=== PATIENT | female | born 1985 | race Caucasian/White ===

== ENCOUNTER 2017-06-30 17:17 | Emergency (ER) | payer OTHER, SELFPAY ==
[2017-06-30 18:12] LABS: Bilirubin Small (Negative); Blood, Urine Negative (Negative); Clarity CLEAR (Clear); Glucose, Urine (Dipstick) Negative (Negative); Leukocyte Small (Negative); Nitrite Negative (Negative); Protein, Urine (Dipstick) 30 mg/dL (Neg-Trace); Specific Gravity, Urine 1.034 (1.002-1.036)
[2017-06-30 18:13] LABS: Pregnancy Test - Urine (BHCG) POSITIVE (Negative); Pregu Control Background? CLEAR/WHITE (CLR/WHITE); Pregu Control Bar Appear? YES (CONTROL BAR); Specific Gravity 1.034 (1.002-1.036)
[2017-06-30 18:16] LABS: Bacteria/HPF None Seen HPF (None Seen)
[2017-06-30 18:17] LABS: Pathc Cast-AUWi Flag 3.05 (0-2.49)
[2017-06-30 18:28] LABS: RBC/HPF None Seen HPF (0-3)
== END 2017-06-30 18:23 ==
LOC: ERS 17:17
DX: Z53.21 Procedure and treatment not carried out due to patient leaving prior to being seen by health care provider (principal)
CPT/HCPCS: 81003; 81015; 81025

== ENCOUNTER 2017-10-04 22:36 | Observation (INO) | payer OTHER, SELFPAY ==
[2017-10-04 23:05] LABS: #Eosinphils 0.2 thou/uL (0.0-0.7); #Lymphocytes 2.5 thou/uL (1.20-3.40); #Monocytes 0.7 thou/uL (0.11-0.59); #Neutrophils 6.6 thou/uL (1.40-6.50); %Basophils 0.3 % (0.0-1.0); %Eosinophils 2.1 % (0.0-10.0); %Lymphocytes 25.2 % (21.0-51.0); %Monocytes 6.5 % (0.0-10.0); Mean Corpuscular HGB CONC 34.5 g/dL (32.0-36.0); Mean Corpuscular Hemoglobin 30.1 pg (27.0-31.0); Mean Corpuscular Volume 87.2 fL (78.0-98.0); Mean Platelet Volume 6.3 fL (7.4-10.4); Platelet Count 360 thou/uL (130-400); RBC Distribution Width 13.1 % (11.5-14.5); Red Blood Cell (RBC) Count 3.31 mill/uL (4.20-5.40)
[2017-10-04 23:14] LABS: ALT (SGPT) 9 U/L (8-55); AST (SGOT) 10 U/L (5-34); Alkaline Phosphatase 54 U/L (40-150); Anion Gap 13 mmol/L (10-20); BUN (Urea Nitrogen) 6 mg/dL (7.0-18.7); Bilirubin, Total 0.3 mg/dL (0.2-1.2); Calc. Creatinine Clearance 0 mL/min (70-130); Calcium 8.5 mg/dL (7.8-10.44); Carbon Dioxide 22 mmol/L (22-29); Chloride 104 mmol/L (98-107); Estimated GFR-MDRD Greater than 90; Globulin 2.5 g/dL (2.4-3.5); Glucose 104 mg/dL (70-105); Protein, Total 5.5 g/dL (6.0-8.3); Sodium 136 mmol/L (136-145)
[2017-10-04 23:18] LABS: Potassium 2.7 mmol/L (3.5-5.1)
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
[2017-10-05] MEDS ORDERED: Pot Chloride/Pot Bicarb/Cit Ac 25 mEq Effervescent Tablet ONE (00:06)
[2017-10-05 00:07] LABS: Bilirubin Negative (Negative); Blood, Urine Negative (Negative); Clarity CLEAR (Clear); Glucose, Urine (Dipstick) Negative (Negative); Leukocyte Trace (Negative); Nitrite Negative (Negative); Protein, Urine (Dipstick) Negative (Neg-Trace); Specific Gravity, Urine 1.011 (1.002-1.036); pH, Urine 6.5 (5.0-9.0)
[2017-10-05 00:10] LABS: Bacteria/HPF None Seen HPF (None Seen); Hyaline Casts/LPF 7-10 HYALINE CAST LPF (0-3 Hyaline); Pathc Cast-AUWi Flag 2.03 (0-2.49); RBC/HPF 0-3 HPF (0-3); Squamous Epithelial 0-3 HPF (0-3); WBC/HPF 0-3 HPF (0-3)
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
[2017-10-05] MEDS ORDERED: Lactated Ringer's 1,000 ML IV SCH (01:15)
[2017-10-05] MEDS ORDERED: Potassium Chloride 20 MEQ TAB PO SCH ×3 (01:15→09:45)
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
[2017-10-05] MEDS ORDERED: Potassium Chloride 10 MEQ in Premix Bag 1 BAG IVPB SCH (01:30)
[2017-10-05 01:46] VITALS: BMI 27.4
--- NOTE | 2017-10-05 02:30 | PDOC.EVN ---
Event Note - Event Note Event Note: Follow UP; Verbal sono report 23 weeks, no gross abnormalities. We will get a strip if possible due to EGA. no need for complete monitoring at this time No evidence abruption or labor. We will obs until about 0700 and then anticipate dc home Patient needs to void for uds but states doesnt need to go yet. IVFs in use.
[2017-10-05] MEDS ORDERED: Acetaminophen 500 MG TAB PO PRN (03:11)
[2017-10-05] MEDS ORDERED: Acetaminophen 500 MG TAB PO SCH (03:30)
--- NOTE | 2017-10-05 07:14 | PDOC.EVN ---
Event Note - Event Note Event Note: @0710: Still awaiting UDS collection. Patient states "does not have to pee". I suspect she may be attempting to prevent urine for drug testing. There is no evidence of Vag Bleed or LOF or PTL. UDS must be voided sample, not cath, per lab.
--- NOTE | 2017-10-05 08:11 | PDOC.EVN ---
Event Note - Event Note Event Note: @5700 Case discussed with oncoming OBGYN. We will attempt urine collection. No evidence obstetrical issue at this time.
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
[2017-10-05 09:31] LABS: Amphetamine Detected (NotDetected); Barbiturates Screen Not Detected (NotDetected); Benzodiazepine Screen Not Detected (NotDetected); Cocaine Metabolite Screen Not Detected (NotDetected); Medtox Control Line Valid? VALID (VALID); Medtox Reader # READER 4; Methadone Not Detected (NotDetected); Methamphetamine Detected (NotDetected); Opiate Screen Not Detected (NotDetected); Oxycodone Screen Not Detected (NotDetected); Phencyclidine (PCP) Not Detected (NotDetected); THC/Cannabinoid Screen Not Detected (NotDetected); Tricyclic Screen Not Detected (NotDetected)
--- NOTE | 2017-10-05 09:43 | PDOC.EVN ---
Event Note - Event Note Event Note: UDS returned + for amphetamine and methamphetamine. This can explain her hypokalemia, which has now been adequately replaced. Will get case management prior to d/c.
--- NOTE | 2017-10-05 09:49 | PDOC.EVN ---
Event Note - Event Note Event Note: post shift note: post shift note: Although Dr. Shell MD is now on, this note is post shift. Patient was noted to have hypokalemia in ED. she received oral KCL in ED and we have replaced K IV. UDS with ampetamines which can cause low K.
--- NOTE | 2017-10-05 10:04 | PDOC.EVN ---
Event Note - Event Note Event Note: After discussion with pharmacy and review of MAR, patient has received 100 meq total of potassium replacement. Patient asymptomatic. Will recheck K level.
[2017-10-05 10:48] LABS: Anion Gap 10 mmol/L (10-20); BUN (Urea Nitrogen) 5 mg/dL (7.0-18.7); Calc. Creatinine Clearance 189 mL/min (70-130); Calcium 8.3 mg/dL (7.8-10.44); Carbon Dioxide 21 mmol/L (22-29); Chloride 109 mmol/L (98-107); Estimated GFR-MDRD Greater than 90; Glucose 84 mg/dL (70-105); Potassium 3.7 mmol/L (3.5-5.1); Sodium 136 mmol/L (136-145)
[2017-10-05 10:56] VITALS: BP 110/58; TEMP 98.7
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
--- NOTE | 2017-10-08 11:49 | EKG ---
Test Reason : Blood Pressure : / mmHG Vent. Rate : 088 BPM Atrial Rate : 088 BPM P-R Int : 144 ms QRS Dur : 102 ms QT Int : 386 ms P-R-T Axes : 037 062 059 degrees QTc Int : 467 ms Sinus rhythm with marked sinus arrhythmia Otherwise normal ECG Confirmed by BILL BARKSDALE, LEONA ([id number]), editor & co founder JOJO NG ([id number]) on 10/08/2017 11:49:14 AM Referred By: Confirmed By:LEONA KHAN MD
== END 2017-10-05 11:25 | disposition home health service (06) ==
LOC: ERS 22:36 → L&D/OP 10-05 00:41 → L&D 10-05 01:57
PROVIDERS: ADMIT Obstetrics & Gynecology; ATTEND Obstetrics & Gynecology
DX: Z04.1 Encounter for examination and observation following transport accident (principal); O99.282 Endocrine, nutritional and metabolic diseases complicating pregnancy, second trimester; E87.6 Hypokalemia; Z3A.22 22 weeks gestation of pregnancy
CPT/HCPCS: 36415; 51701; 70450; 72125; 76700; 76805; 80048; 80053; 80306; 81003; 81015; 85025; 86900; 86901; 93005; 96360; 96361; 96365; 96366; 99285; A4353; G0378; G0390; J3480

== ENCOUNTER 2017-11-19 18:35 | Inpatient (IN) | payer SELFPAY ==
[2017-11-19 19:18] VITALS: BMI 29.0
[2017-11-19] MEDS ORDERED: Lactated Ringer's 1,000 ML IV SCH (20:00)
[2017-11-19 20:36] LABS: #Basophils 0.1 thou/uL (0.0-0.2); #Eosinphils 0.2 thou/uL (0.0-0.7); #Lymphocytes 2.5 thou/uL (1.20-3.40); #Monocytes 0.6 thou/uL (0.11-0.59); #Neutrophils 8.2 thou/uL (1.40-6.50); %Basophils 0.6 % (0.0-1.0); %Eosinophils 1.6 % (0.0-10.0); %Lymphocytes 21.9 % (21.0-51.0); %Monocytes 5.5 % (0.0-10.0); %Neutrophils 70.5 % (42.0-75.0); Mean Corpuscular HGB CONC 33.6 g/dL (32.0-36.0); Mean Corpuscular Hemoglobin 28.9 pg (27.0-31.0); Mean Corpuscular Volume 86.2 fL (78.0-98.0); Mean Platelet Volume 6.5 fL (7.4-10.4); Platelet Count 410 thou/uL (130-400); RBC Distribution Width 13.2 % (11.5-14.5); Red Blood Cell (RBC) Count 3.12 mill/uL (4.20-5.40); White Blood Cell (WBC) Count 11.6 thou/uL (4.8-10.8)
--- NOTE | 2017-11-19 20:48 | HP ---
DATE OF ADMISSION: 11/19/2017 TIME OF EVALUATION: 1942 until 1999 LOCATION: Labor and Delivery. This is a patient who has not yet established care. REASON FOR EVALUATION: Abdominal pain, after the patient left against medical advice from a hospital in [place] this morning. HISTORY OF PRESENT ILLNESS: In brief, this is a 31-year-old 5, para 3 with a due date of , which puts her at 29 weeks and a few days, here for followup of abdominal pain. She states she w as in the hospital in [place] last night, but she left this morning AMA as "her ride was there." S he came here for evaluation. She was diagnosed with gallbladder stones there. It is important to no te that the patient was here at this location in October as well and had an ultrasound, which showed gal lbladder stones at that time. She also had an obstetrical ultrasound in October, which gave her her due date of 02/01. She is here for nonspecific mid sternum abdominal pain. She has no vaginal bleeding , ruptured membranes and she has good movement. 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 REVIEW OF SYSTEMS: Complete review of systems was checked and is otherwise negative unless specified in the HPI. OBSTETRIC HISTORY: Significant for 3 prior vaginal deliveries. ALLERGIES: None. PAST SURGICAL HISTORY: None. MEDICATIONS: None. SOCIAL HISTORY: Positive amphetamine and methamphetamine use in October. PHYSICAL EXAMINATION: VITAL SIGNS: Stable and within normal limits. heart tones were in the 150s, but did have mini mal variability. There was a small variable decels seen, but it is unsure at this point if this is s imply reflection of the estimated gestational age of 29 weeks. ASSESSMENT: This is a patient who is 31-year-old G5, P3 at 29 weeks and a few days with no establish ed care, known history of amphetamine and methamphetamine use, with a known diagnosis of cho lelithiasis, first diagnosed in October and confirmed by the hospital "in [place]." PLAN: 1. I have asked to request her medical records from her recent stay. 2. I have ordered an ultrasound for rate of growth as well as a biophysical profile. Her biophysica l profile may have some limited interpretations due to gestational age immaturity, but nonetheless, I will get the biophysical profile to give us more information. 3. Although the patient is not having any symptoms of true labor, I have ordered a cervical length t o rule out any abnormal shortening as she is a noncompliant care patient. 4. I have ordered a CBC, CMP and another urine drug screen for testing. 5. In addition to the OB ultrasound for growth, biophysical profile and cervical length, I have orde red a right upper quadrant ultrasound to rule out any common bile duct dilation and/or gallbladder wa ll thickening. She is currently afebrile. 6. We will do observation in Labor and Delivery until we have these tests back, which will guide fur ther therapy.
[2017-11-19] MEDS: Promethazine HCl 25 MG/ML VIAL IM/IV PRN (20:50)
--- NOTE | 2017-11-19 20:59 | PRG ---
DATE OF SERVICE: 11/19/2017 FOLLOWUP IN TRIAGE SUBJECTIVE: In brief, this is a followup dictation for Ms. Asher who is here status post evaluation at the [facility]. We have the medical records from [facility] where she was seen. There, they performed an obstetrical ultrasound, which revealed a 29-week and 5 days, which is size compatible with our estimated dated here. The estimated weight there was 1454 grams, baby was in a breech presentation. No abnormalities were seen. The LADONNA was normal at 21. At that location, she also had a white blood cell count of 12.6, but her liver function tests were normal. She had a right upper quadrant ultrasound there, which showed cholelithiasis, but no gallbladder wall thickening and no evidence of common bile duct obstruction. The patient is currently undergoing our obstetrical ultrasound for comparison and biophysical profile. As she had a right upper quadrant ultrasound done within the last 24 hours, I have decided to cancel the right upper quadrant ultrasound as we will use the one from the other institution. The patient's white blood cell count is slightly lower than what it was at the other hospital with a value here of 11.6. Hematocrit is 26.9. I am awaiting the biophysical profile result here and the remainder of her laboratory data, which is the CMP and urine toxicology evaluation. UDS negative at other hospital. TAMMYD
[2017-11-19 21:04] LABS: Amphetamine Not Detected (NotDetected); Barbiturates Screen Not Detected (NotDetected); Benzodiazepine Screen Not Detected (NotDetected); Cocaine Metabolite Screen Not Detected (NotDetected); Medtox Control Line Valid? VALID (VALID); Medtox Reader # READER 1; Methadone Not Detected (NotDetected); Methamphetamine Not Detected (NotDetected); Opiate Screen Detected (NotDetected); Oxycodone Screen Not Detected (NotDetected); Phencyclidine (PCP) Not Detected (NotDetected); THC/Cannabinoid Screen Not Detected (NotDetected); Tricyclic Screen Not Detected (NotDetected)
[2017-11-19 21:05] LABS: ALT (SGPT) Less than 7 U/L (8-55); AST (SGOT) 10 U/L (5-34); Albumin 3.4 g/dL (3.5-5.0); Alkaline Phosphatase 80 U/L (40-150); Anion Gap 13 mmol/L (10-20); BUN (Urea Nitrogen) 7 mg/dL (7.0-18.7); Bilirubin, Total 0.7 mg/dL (0.2-1.2); Calc. Creatinine Clearance 175 mL/min (70-130); Calcium 8.6 mg/dL (7.8-10.44); Carbon Dioxide 21 mmol/L (22-29); Chloride 106 mmol/L (98-107); Estimated GFR-MDRD Greater than 90; Globulin 2.4 g/dL (2.4-3.5); Glucose 90 mg/dL (70-105); Potassium 4.1 mmol/L (3.5-5.1); Protein, Total 5.8 g/dL (6.0-8.3); Sodium 136 mmol/L (136-145)
--- NOTE | 2017-11-19 21:06 | PDOC.EVN ---
Event Note - Event Note Event Note: @2100: Antepartum Bed: At bedside, BPP by tech is so far 6/8 (-2 for breathing)...this would make it 6/ 10 with the strip. I am suspicious that this is immaturity due to EGA. I will recommend overnight OBS, repeat BPP at 0900 (12 hours) and steroids to prepare for indicated delivery if needed. No 1 hour on file and steroid swill through it off. Order 1 hour GTT 50 gram now and then steroids in AM. (actually, pharmacy does not have 50gram glucosa so we will just check HbA1c for now). I discussed this with the patient at bedside. BPP still has 10 more minutes of diagnostic testing. Order: HIV, RPR, Hep BSAg, Type and RH
[2017-11-19 21:23] LABS: Hemoglobin A1c 4.8 % (4.0-6.0)
[2017-11-19] MEDS: Lactated Ringer's 1,000 ML IV SCH (21:30)
--- NOTE | 2017-11-19 21:34 | ULT ---
SONOGRAPHIC BIOPHYSICAL PROFILE EXAM: 11/19/17 HISTORY: Third trimester gestation. Pelvic pain. FINDINGS: Good tone and gross movements were demonstrated. breathing movement not visualized. Amnio tic fluid index is 21.2. IMPRESSION: Sonographic biophysical profile score is 6/8. POS: [facility]
--- NOTE | 2017-11-19 21:37 | ULT ---
OBSTETRIC SONOGRAMS: 11/19/17 HISTORY: Third trimester gestation. Evaluate cervical length. FINDINGS: Single viable intrauterine gestation in transverse presentation. Cervix is closed and 4.7 cm. Amniotic fluid is within normal limits. Grade 0 placenta is anterior. He art motion at 139 beats per minute. No gross intracranial abnormalities are apparent. spine and kidneys are intact as visualized. Measurements are as follows: Biparietal diameter 29 weeks, 6 days Head circumference 29 weeks, 6 days Abdominal circumference 30 weeks, 6 days Femur length 28 weeks, 2 days Estimated date of delivery based on today's sonogram is 01/30/18. Hadlock percentile 54%. IMPRESSION: Cervix closed and long. Single viable intrauterine gestation with estimated gestational age based on today's sonogram of 29 weeks, 5 days. POS: [facility]
[2017-11-19 21:45] LABS: Syphilis Antibody Nonreactive (Nonreactive); Syphilis Antibody Index 0.04 S/CO (<1.00 Non-Reactive)
--- NOTE | 2017-11-19 21:55 | PDOC.EVN ---
Event Note - Event Note Event Note: Verbal report from [employer] was that cervical length was 4cm. Patient with persistent abd pain...we will continue bentyl and give stadol prn. I do not suspect PTL
[2017-11-19] MEDS: Butorphanol Tartrate 1 MG/ML VIAL SLOW IVP PRN (22:20)
[2017-11-19 22:41] LABS: HBSAg Index 0.17 S/CO (0-0.99); HIV (1/2) Antibody/Antigen Non-Reactive (NonReactive); HIV 1/2 INDEX 0.08 S/CO (<1.00); Hep B Surf Ag Non-Reactive S/CO (NonReactive)
--- NOTE | 2017-11-19 22:49 | PDOC.EVN ---
Event Note - Event Note Event Note: UDS here pos for opiates but she was given opiates at other hospital. UDS at that location was negative
--- NOTE | 2017-11-19 23:58 | PDOC.EVN ---
Event Note - Event Note Event Note: hemoglobin A1c: 4.8
[2017-11-20] MEDS: Butorphanol Tartrate 1 MG/ML VIAL SLOW IVP PRN (04:03)
[2017-11-20] MEDS: Lactated Ringer's 1,000 ML IV SCH (06:14)
--- NOTE | 2017-11-20 08:21 | PDOC.EVN ---
Event Note - Event Note Event Note: D/W Dr Reynoso coming on duty. FHTs look better for EGA 29 weeks. Plan on repaet BPP this am as follow up although aware of EGA limitations with test. If borderline, ACOG ok with outpatiet repaet in 24 hrs due to EGA less than 32 weeks per Bulletin.
[2017-11-20] MEDS ORDERED: Betamet Acet/Betamet Na Ph 30 MG/5 ML VIAL IM SCH (09:00)
--- NOTE | 2017-11-20 09:52 | PDOC.EVN ---
Event Note - Event Note Event Note: Continues to c/o of pain, nausea. No emesis. BPP returns 11/09. Fhts are reassuring, no UCs seen. Will obtain upper abdominal USG and give steroids for FLM.
[2017-11-20] MEDS: Promethazine HCl 25 MG/ML VIAL IM/IV PRN (10:03)
--- NOTE | 2017-11-20 10:37 | ULT ---
BIOPHYSICAL PROFILE: Date: 11/20/17 COMPARISON: 11/19/17. HISTORY: female with slightly low biophysical profile on yesterday's examination. TECHNIQUE: Multiplanar Dixon scale and color Doppler images were obtained in a transabdominal ultrasound. FINDINGS: There is a single live intrauterine with heart rate of 133 beats/minute. LADONNA is 15.1 cm, wh ich is normal. The fetus scored 8 of 8 on the biophysical profile, which is normal. IMPRESSION: Normal biophysical profile. POS: [facility]
[2017-11-20] MEDS ORDERED: Famotidine/PF 20 mg/2ml Vial SLOW IVP SCH ×2 (10:45→21:00)
--- NOTE | 2017-11-20 16:03 | PDOC.EVN ---
Event Note - Event Note Event Note: Feeling better. has remained afebrile. Hungry, wants to eat. USG shows gallstones as seen before, no thickened wall or dilated duct. Will discharge home with Bentyl 20mg 1 po q6 prn, and Pepsid 20 mg BID. Has been given info on the Clinic. Will return tomorrow for 2nd steroid shot. Precautions reviewed.
--- NOTE | 2017-11-20 16:13 | ULT ---
SONOGRAM ABDOMEN COMPLETE: History: Abdominal pain. FINDINGS: Multiple shadowing stones are present within the gallbladder lumen. No gallbladder wall thickening, p ericholecystic fluid, or significant distention. Common duct is 0.3 cm. Liver is unremarkable without focal mass or intrahepatic biliary dilatation. No free fluid. The spleen, kidneys, and visualized po rtions of the abdominal aorta, IVC, and pancreas are unremarkable. IMPRESSION: Cholelithiasis. No evidence of acute biliary obstruction. POS: [facility]
[2017-11-20 16:19] VITALS: BP 134/80; TEMP 98.7
== END 2017-11-20 17:05 | disposition home health service (06) | DRG 775 ==
LOC: L&D/OP 18:35 → L&D 22:49
PROVIDERS: ADMIT Obstetrics & Gynecology; ATTEND Obstetrics & Gynecology
DX: O32.1XX0 Maternal care for breech presentation, not applicable or unspecified (principal); Z37.0 Single live birth; Z3A.29 29 weeks gestation of pregnancy; O99.613 Diseases of the digestive system complicating pregnancy, third trimester; K80.20 Calculus of gallbladder without cholecystitis without obstruction
CPT/HCPCS: 59025; 76700; 76815; 76819; 80053; 80306; 83036; 85025; 86780; 87340; 87389; 99285; J0595; J0702; J2550; S0028

== ENCOUNTER 2017-11-21 07:16 | Day surgery (SDC) | payer SELFPAY ==
[2017-11-21] MEDS ORDERED: Betamet Acet/Betamet Na Ph 30 MG/5 ML VIAL IM SCH (07:45)
== END 2017-11-21 07:30 | disposition home or self-care (01) ==
LOC: L&D/OP 07:16
PROVIDERS: ATTEND Obstetrics & Gynecology
DX: Z29.8 Encounter for other specified prophylactic measures (principal)
CPT/HCPCS: 96372

== ENCOUNTER 2018-01-29 13:10 | Inpatient (IN) | payer OTHER ==
[2018-01-29 13:58] VITALS: BMI 26.6
[2018-01-29] MEDS ORDERED: ePHEDrine/0.9% NaCl/PF SYRINGE 50 mg/10 ml ONE ×2 (13:58→15:19)
[2018-01-29] MEDS ORDERED: Bicitra 30 ML UDCUP ONE ×2 (14:45→14:46)
[2018-01-29] MEDS ORDERED: Ondansetron PF 4 MG/2 ML Vial IVP PRN ×4 (14:53→20:48)
[2018-01-29] MEDS ORDERED: Lactated Ringer's 1,000 ML IV SCH ×3 (14:53→18:42)
[2018-01-29] MEDS ORDERED: Promethazine HCl 25 MG/ML VIAL IM PRN ×4 (14:53→20:48)
[2018-01-29] MEDS ORDERED: CEFAZOLIN/Water 2 GM/20 ML SYRINGE SLOW IVP SCH (14:53)
[2018-01-29] MEDS ORDERED: Butorphanol Tartrate 1 MG/ML VIAL SLOW IVP PRN (14:53)
--- NOTE | 2018-01-29 14:55 | PDOC.LDHP ---
Labor and Delivery H&P Chief complaint: contractions, loss of fluid Allergies/Adverse Reactions: Allergies Allergy/AdvReac Type Severity Reaction Status Date / Time No Known Allergies Allergy Verified 10/05/17 02:13 - OB Labs Blood type: A RH: positive - Plan -: See Dictated H&P breech lie in labor for cs
[2018-01-29 15:00] LABS: Hemoglobin 10.7 g/dL (12.0-16.0); Mean Corpuscular HGB CONC 32.5 g/dL (32.0-36.0); Mean Corpuscular Hemoglobin 27.8 pg (27.0-31.0); Mean Corpuscular Volume 85.6 fL (78.0-98.0); Mean Platelet Volume 7.6 fL (7.4-10.4); Platelet Count 423 thou/uL (130-400); RBC Distribution Width 15.3 % (11.5-14.5); Red Blood Cell (RBC) Count 3.84 mill/uL (4.20-5.40); White Blood Cell (WBC) Count 16.2 thou/uL (4.8-10.8)
[2018-01-29 15:00] LABS: Amnisure Test RUPTURE DETECTED (No Rupture)
[2018-01-29] MEDS ORDERED: CEFAZOLIN 2 GM/50 ML-DEXTROSE 2 GM in Premix Bag 1 BAG IVPB SCH (15:00)
[2018-01-29 15:01] LABS: Amnisure Internal Control QC ACCEPTABLE (ACCEPTABLE)
[2018-01-29] MEDS ORDERED: Bicitra 30 ML UDCUP PO SCH (15:15)
[2018-01-29] MEDS ORDERED: Morphine PF 1 MG/ML SYR ONE (15:18)
[2018-01-29] MEDS ORDERED: Bupivacaine 0.75% W/DEXTROSE 8.25% 2 ML AMP ONE (15:19)
[2018-01-29] MEDS ORDERED: Lidocaine 1% PF 5 ML VIAL ONE (15:20)
[2018-01-29] MEDS ORDERED: Oxytocin 10 UNITS/ML VIAL ONE ×2 (15:20→16:22)
[2018-01-29 15:38] LABS: Amphetamine Not Detected (NotDetected); Barbiturates Screen Not Detected (NotDetected); Benzodiazepine Screen Not Detected (NotDetected); Cocaine Metabolite Screen Not Detected (NotDetected); Medtox Control Line Valid? VALID (VALID); Medtox Reader # READER 1; Methadone Not Detected (NotDetected); Methamphetamine Not Detected (NotDetected); Opiate Screen Not Detected (NotDetected); Oxycodone Screen Not Detected (NotDetected); Phencyclidine (PCP) Not Detected (NotDetected); THC/Cannabinoid Screen Not Detected (NotDetected); Tricyclic Screen Not Detected (NotDetected)
[2018-01-29 15:42] LABS: Syphilis Antibody Nonreactive (Nonreactive); Syphilis Antibody Index 0.07 S/CO (<1.00 Non-Reactive)
[2018-01-29 15:43] LABS: Hep B Surf Ag Non-Reactive S/CO (NonReactive)
[2018-01-29] MEDS ORDERED: Ketorolac Tromethamine 30 MG/ML VIAL IVP PRN (16:05)
[2018-01-29] MEDS ORDERED: Naloxone HCl 0.4 mg/ml Vial IVP PRN ×2 (16:05)
[2018-01-29] MEDS ORDERED: diphenhydrAMINE 50 MG/ML VIAL IVP PRN (16:05)
[2018-01-29] MEDS ORDERED: Promethazine HCl 25 MG SUPP PR PRN ×2 (16:05→20:48)
[2018-01-29] MEDS ORDERED: Eucerin (Mineral Oil/Petrolatum,White) 30 gm Jar TOP PRN (16:05)
[2018-01-29] MEDS ORDERED: Naloxone HCl 0.4 mg/ml Vial IV PRN ×4 (16:05→20:48)
[2018-01-29] MEDS ORDERED: Meperidine HCl/PF 25 MG/ML VIAL SLOW IVP PRN (16:06)
[2018-01-29] MEDS ORDERED: Ondansetron HCl/PF 4 MG/2 ML Vial IVP PRN (16:06)
[2018-01-29] MEDS ORDERED: L&D-Morphine 4 MG/ML VIAL SLOW IVP PRN (16:06)
[2018-01-29] MEDS ORDERED: HYDROmorphone 2 MG/ML VIAL SLOW IVP PRN (16:06)
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
[2018-01-29] MEDS ORDERED: Ketorolac Tromethamine 30 MG/ML VIAL IVP SCH (16:15)
[2018-01-29] MEDS ORDERED: Communication Order-Pharmacy FS SCH (16:15)
--- NOTE | 2018-01-29 16:54 | OP ---
DATE OF PROCEDURE: 01/29/2018 TIME OF SERVICE: 16:15 PREOPERATIVE DIAGNOSES: Term gestation, transverse presentation, rupture of membranes, active labor. POSTOPERATIVE DIAGNOSES: Term gestation, transverse presentation, rupture of membranes, active labor . PROCEDURE: Primary low transverse section without extension. SURGEON: Joey Ellis M.D. BOLTING MACHINE OPERATOR: Anibal Beck M.D, PGY-3. ANESTHESIA: Jim Phillip M.D., subarachnoid block. MEDICATIONS: Two grams Ancef preincision. DVT PROPHYLAXIS: SCDs. DRAINS: Howe to gravity. QBL: Pending, but appeared to be between 750mL and 1000 mL estimated blood loss. DISPOSITION: To the recovery room in good condition. OPERATIVE FINDINGS: 1. Vigorous female infant in transverse lie, clear fluid, Apgars 8 and 9, 7 pounds 2 ounces, nursery. 2. Normal appearing uterus, tubes, and ovaries bilaterally. 3. Hemostasis with clear urine, counts correct at the end of the procedure. DISPOSITION: To the recovery room in good condition. PATHOLOGY: Placenta to pathology. DESCRIPTION OF PROCEDURE: The patient was taken to the operating room were subarachnoid block was ac hieved without difficulty to appropriate level for section. The patient was prepped and davi ped in the usual manner. Pfannenstiel incision made through the skin, carried down to the fascia mid line, incised sharply superiorly and laterally with curved Ware scissors. Rectus dissected off sharp ly superiorly and inferiorly, divided in the midline. Peritoneum entered bluntly, taking care to rody id trauma to the underlying viscera. Amari 0 retractor was placed inside. Vesicouterine peritoneal fold was identified. The lower uterine segment was palpated. The 's head was noted to be on the maternal right with arm palpable in the lower uterine segment and breech on the maternal le ft. It was, however, somewhat unstable that it was felt that intrauterine podalic version could be a ccomplished easily with low transverse hysterotomy. A low transverse hysterotomy was produced and ex tended superiorly and laterally with finger fractionization. 's arm protruded through the hyst erotomy was placed back inside and the upper portion of the body along the arm and the head was displaced in a clockwise manner towards the fundus of the uterus allowing the back strip machine operator to grasp the feet of the fetus x2 and bring these out through the hysterotomy. The rest of the infant was then de livered through the hysterotomy in usual manner for breech presentation, may take corkscrew maintaini ng flexion and delivery with ease onto the abdomen. The infant was suctioned, cord clamped and cut a nd handed off to team in attendance. Usual cord blood sample obtained. Placenta removed an d sent for pathology. Uterus left inside the abdominal cavity. Hysterotomy noted to be without exte nsion and closed using a running locking #1 Monocryl suture x2 layers. Inspection of the adnexa reve aled them to be within normal limits. Reinspection of the hysterotomy revealed it to be dry. Gutter s were irrigated out and Amari O retractor removed. Counts were correct x1 at this point in time. Hysterotomy was reinspected and noted to be dry and the fascia was reapproximated after inspecting th e rectus and noting it to be dry using an 0 PDS suture x2. Subcutaneous tissue irrigated and rendere d hemostatic with Bovie cautery and the skin reapproximated using 4-0 Monocryl and Dermabond. The pa tient taken to recovery room in good condition.
[2018-01-29] MEDS ORDERED: Simethicone Chewable 80 MG TAB PO PRN (18:42)
[2018-01-29] MEDS ORDERED: Misoprostol 200 MCG TAB PR PRN (18:42)
[2018-01-29] MEDS ORDERED: Measles/Mumps/Rubella 10 MCG/0.5 ML VIAL SC ONE (18:42)
[2018-01-29] MEDS ORDERED: Lanolin Ointment 7 GM TUBE TOP PRN (18:42)
[2018-01-29] MEDS ORDERED: diphenhydrAMINE 25 MG CAP PO PRN (18:42)
[2018-01-29] MEDS ORDERED: NS / Oxytocin 40 units/1000ml 1,000 ML IV SCH (18:42)
[2018-01-29] MEDS ORDERED: Adacel (T-DAP) 0.5 ML VIAL IM ONE (18:42)
[2018-01-29] MEDS ORDERED: NO PO,IM,IV OR SC NARCOTICS FOR 12HR EXCEPT BY ANESTHESIA PO SCH (20:48)
[2018-01-29] MEDS ORDERED: Hydrocerin (Eucerin) Cream 120 gm Jar TOP PRN (20:48)
[2018-01-29] MEDS: Ketorolac Tromethamine 30 MG/ML VIAL IVP PRN (21:06)
[2018-01-29] MEDS: diphenhydrAMINE 50 MG/ML VIAL IVP PRN (21:15)
[2018-01-29] MEDS ORDERED: Ibuprofen 800 MG TAB PO SCH (22:00)
[2018-01-30] MEDS: diphenhydrAMINE 50 MG/ML VIAL IVP PRN (00:31)
[2018-01-30] MEDS: Ketorolac Tromethamine 30 MG/ML VIAL IVP PRN ×2 (03:02→09:39)
[2018-01-30] MEDS ORDERED: Butorphanol Tartrate 1 MG/ML VIAL SLOW IVP PRN (04:15)
[2018-01-30] MEDS ORDERED: Zolpidem Tartrate 5 MG TAB PO PRN (04:15)
[2018-01-30] MEDS ORDERED: HYDROcodone/Acetaminophen 5/325 mg Tablet PO PRN ×3 (04:15→08:11)
[2018-01-30] MEDS ORDERED: Meperidine HCl/PF 25 MG/ML VIAL IM PRN (04:15)
[2018-01-30 06:18] LABS: Mean Corpuscular HGB CONC 32.2 g/dL (32.0-36.0); Mean Corpuscular Hemoglobin 27.6 pg (27.0-31.0); Mean Corpuscular Volume 85.9 fL (78.0-98.0); Mean Platelet Volume 7.2 fL (7.4-10.4); Platelet Count 355 thou/uL (130-400); RBC Distribution Width 15.2 % (11.5-14.5); Red Blood Cell (RBC) Count 3.27 mill/uL (4.20-5.40)
--- NOTE | 2018-01-30 07:32 | PDOC.PP ---
Post Progress Note Post Day #: 1 PO intake tolerated: yes Flatus: yes Ambulation: yes Vital Signs (12 hours) Temp Pulse Resp BP 01/30/18 00:00 98.0 F 72 18 129/76 01/29/18 21:30 98.1 F 64 18 138/84 Weight Weight 160 lb - Physical Examination Abdominal: + bowel sounds, lochia, no distention, appropriately TTP Extremities: negative homans (B) Result Diagrams: 01/30/18 06:08 Additional Labs: Post Labs Blood Type A POSITIVE 01/29/18 14:30 Hep Bs Antigen Non-Reactive S/CO (NonReactive) 01/29/18 14:30 - Assessment/Plan post op day 1 from primary c/s -active labor/srom/transverse lie. doing well. routine post op care.
[2018-01-30] MEDS: Prenatal Vitamin 1 TAB PO SCH (08:05)
[2018-01-30] MEDS: HYDROcodone/Acetaminophen 5/325 mg Tablet PO PRN ×2 (08:45→19:59)
[2018-01-30] MEDS ORDERED: Sodium Chloride 0.9% 10 ML ONE (09:36)
[2018-01-30] MEDS: Ibuprofen 800 MG TAB PO SCH ×2 (16:42→23:18)
[2018-01-31] MEDS: HYDROcodone/Acetaminophen 5/325 mg Tablet PO PRN ×3 (01:04→11:45)
[2018-01-31] MEDS: Ibuprofen 800 MG TAB PO SCH (05:58)
--- NOTE | 2018-01-31 08:08 | PDOC.PP ---
Post Progress Note Post Day #: 2 Subjective: Feeling better. Would like to go home today. PO intake tolerated: yes Flatus: yes Ambulation: yes Vital Signs (12 hours) Temp Pulse Resp BP Pulse Ox 01/31/18 03:50 97.9 F 77 16 120/69 98 01/30/18 23:19 97.8 F 69 20 119/82 97 Weight Weight 160 lb - Physical Examination Abdominal: + bowel sounds, no distention, appropriately TTP Extremities: negative homans (B) Result Diagrams: 01/30/18 06:08 Additional Labs: Post Labs Blood Type A POSITIVE 01/29/18 14:30 Hep Bs Antigen Non-Reactive S/CO (NonReactive) 01/29/18 14:30 - Assessment/Plan Post op day 2 from primary c/s for transverlie in labor. Doing well. D/c home today. F/u in 6 weeks. Will schedule post interval tubal at around 8 weeks then.
[2018-01-31] MEDS ORDERED: Measles/Mumps/Rubella 10 MCG/0.5 ML VIAL SC ONE (09:15)
[2018-01-31] MEDS: Prenatal Vitamin 1 TAB PO SCH (09:40)
[2018-01-31 11:56] VITALS: BP 176/89; TEMP 98
== END 2018-01-31 13:25 | disposition home or self-care (01) | DRG 788 ==
LOC: L&D/OP 13:10 → L&D 16:02 → 3SW 19:11
PROVIDERS: ADMIT Obstetrics & Gynecology; ATTEND Obstetrics & Gynecology
PROC: 10D00Z1 Extraction of Products of Conception, Low, Open Approach (ICD-10-PCS; principal; 2018-01-29)
DX: O99.824 Streptococcus B carrier state complicating childbirth (principal); O32.1XX0 Maternal care for breech presentation, not applicable or unspecified; Z3A.39 39 weeks gestation of pregnancy; Z37.0 Single live birth; F15.10 Other stimulant abuse, uncomplicated; O99.324 Drug use complicating childbirth
CPT/HCPCS: 36415; 51702; 76815; 80306; 84112; 85027; 86780; 86850; 86900; 86901; 87340; 88307; 90707; 90715; 99285; J1200; J1885; J2001; J2274; J2590; J3490

== ENCOUNTER → 2019-06-08 | Day surgery (SDC) | payer OTHER ==
[~2019-06-08] MED LIST: Butorphanol Tartrate 1 MG/ML VIAL SLOW IVP PRN; FLU VACC QS2019-20(6MOS UP)/PF 60 MCG/0.5 ML SYRINGE IM ONE; Lactated Ringer's 1,000 ML IV SCH; NIFEdipine 10 MG CAP PO SCH; Ondansetron PF 4 MG/2 ML Vial IVP PRN; Promethazine HCl 25 MG/ML VIAL IM PRN; hydrALAZINE 20 MG/ML VIAL SLOW IVP PRN
[2019-06-08 09:13] VITALS: BP 148/103; TEMP 98.5
[2019-06-08 09:14] VITALS: BMI 29.9
--- NOTE | 2019-06-08 09:49 | RAD ---
PORTABLE CHEST 1 VIEW: Date: 06/08/2019 Time: 0943 hours HISTORY: Cough. FINDINGS: The heart size is normal. No focal areas of consolidation, pneumothoraces, or pleural effusions are s een. IMPRESSION: No radiographic evidence of acute cardiopulmonary process. POS: [facility]
--- NOTE | 2019-06-08 10:01 | PDOC.EVN ---
Event Note - Event Note Event Note: OBGYN: Patient seen at bedside. OB sono being done now by tech. I discussed the entire work up with her. I dictated the H&P (executive community planning pending). Social HX clarification: I initially dictated no smoking but the patient now does state she smokes cigarrettes but was "quitting". States last CS was done by Dr Ellis. Her BP is now 140/90s
[2019-06-08 10:02] LABS: Hemoglobin 12.9 g/dL (12.0-16.0); Mean Corpuscular HGB CONC 34.2 g/dL (32.0-36.0); Mean Corpuscular Hemoglobin 29.7 pg (27.0-31.0); Mean Corpuscular Volume 86.9 fL (78.0-98.0); Platelet Count 387 thou/uL (130-400); RBC Distribution Width 13.9 % (11.5-14.5); Red Blood Cell (RBC) Count 4.35 mill/uL (4.20-5.40)
[2019-06-08 10:12] LABS: Bacteria/HPF None Seen HPF (None Seen); Bilirubin Negative (Negative); Blood, Urine Negative (Negative); Clarity Clear (Clear); Glucose, Urine (Dipstick) Normal (Negative); Leukocyte Negative Leu/uL (Negative); Nitrite Negative (Negative); Protein, Urine (Dipstick) Negative (Neg-Trace); RBC/HPF 0-3 HPF (0-3); Squamous Epithelial 0-3 HPF (0-3); WBC/HPF 0-3 HPF (0-3)
--- NOTE | 2019-06-08 10:12 | HP ---
LOCATION: Labor and Delivery. TIME OF EVALUATION: Roughly 0915 hours. This is a patient who presents with no previous care, who presents to Labor and Delivery with complaint of possible cough and headache. HISTORY OF PRESENT ILLNESS: In brief, this is a 33-year-old, 6, para 4 , AB1 with unsure last menstrual period anywhere from September 06, 2018 to October 06, 2018, placing a possible gestational age anywhere from 35 weeks to 39 weeks by unsure criteria. She states that she has not had care this . She has good movement. Denies vaginal bleeding, leakage of fluid, or fevers. She does state that she has had a cough for few days. She states that she has checked her blood pressure at home and it has "been high." She has not had any medical evaluation for this . She does state a history of elevated blood pressure with her first delivery. She states that she has had headache on and off for about 2 days, but has not sought evaluation. She last took Tylenol earlier in the morning about 6 hours ago. REVIEW OF SYSTEMS: Complete review of systems was checked and is otherwise negative unless specified in the HPI. Most importantly, she does not state that there is any leakage of fluid, vaginal bleeding, regular contractions, decrease in movement, and she denies fever. She has no history of recent trauma and she denies any sick contacts. PAST MEDICAL HISTORY: Significant for PIH with her 1st (part of OB history), but she does not have a history of chronic hypertension. PAST OB HISTORY: She is a multigravida with a with her last delivery. As previously stated, a history of elevated blood pressure with her 1st gestation. She has not had care this . PAST SURGICAL HISTORY: . ALLERGIES: NONE. MEDICATIONS: Tylenol p.r.n. SOCIAL HISTORY: Negative for alcohol, tobacco, or drug use (patient denies). PHYSICAL EXAMINATION: VITAL SIGNS: Her blood pressure is 160/105, repeat was 148/105, pulse is in the 110s, temperature is 98.5, respiratory rate is 18, but they are unlabored. Her BMI is 30.0 kg/m2. GENERAL: She is in no acute distress. Breathing is unlabored. CHEST: Clear to auscultation bilaterally. ABDOMEN: Gravid with a gestation/palpation above the umbilicus. EGA is not able to be determined as we have no LMP, so we cannot determine if she is size appropriate. PELVIC: Currently deferred, but there is no gross evidence of bleeding or leakage of fluid. monitor: heart tones are reactive and meets the definition of a reactive nonstress test. There are no contractions on tocodynamometer. Interventions ordered; we have ordered a CMP, CBC, flu swab, cath UA, HIV, RPR, hepatitis B surface antigen, hepatitis C viral antigen, we have ordered a urine toxicology screen as the patient has been somewhat evasive regarding her care, we have ordered a GBS swab for record (group B strep) as she has unknown GBS status at this time. We have also ordered a type and Rh. I have ordered a stat chest x-ray due to her history of cough and having no care. I have also ordered a stat ultrasound for presentation and estimated gestational age and to serve as a rough idea of her EGA as we will have to use this as a default for gestational dating as she does not have an LMP. I have also ordered a urine qbmiqpi-vp-jblvjzrcjg ratio based on her blood pressure. In terms of medication, I have order Procardia 10 mg p.o. in accordance with ACOG protocol for urgent hypertension as her 1st blood pressure is 160/105. ASSESSMENT: This is a 33-year-old multigravida patient with a previous C- section x1 of unknown gestation, somewhere in the third trimester (from 35 to 39 weeks) with urgent hypertension on admission, with a repeat blood pressure that was slightly improved at 148/105. No labs at this time. She does have a history of headache. PLAN: 1. Please see the interventions ordered as previously dictated. 2. We will do all routine OB labs as outlined. 3. Infection panel with cath UA, and flu swab is pending. 4. Management of urgent hypertension is to follow ACOG protocol and therefore we have ordered Procardia 10 mg p.o. x1. 5. OB-POWER CUTTING MACHINE OPERATOR management. I have ordered GBS swab as she is in the third trimester. 6. Social: I have ordered a UDS for record as she has no care and is evasive on QNA. 7. Final management: If the patient's blood pressure remains elevated, we will assume severe preeclampsia somewhere in the third trimester and may have to proceed with a . For now, as I do not have a gestational age, we will opt for expected management unless blood pressure remains persistently elevated. I am not sure the patient will be delivered this admission or simply have inpatient observation at this time. Management will depend on the rest of the labs including UDS finding, infection panel, and expectant management of blood pressure surveillance. Job ID: [id number] MTDD
[2019-06-08 10:14] LABS: Urine Culture Reflex No No
[2019-06-08 10:21] LABS: ALT (SGPT) 9 U/L (8-55); AST (SGOT) 14 U/L (5-34); Albumin 3.3 g/dL (3.5-5.0); Alkaline Phosphatase 189 U/L (40-110); Anion Gap 16 mmol/L (10-20); BUN (Urea Nitrogen) 9 mg/dL (7.0-18.7); Bilirubin, Total 0.8 mg/dL (0.2-1.2); Calc. Creatinine Clearance 164 mL/min (70-130); Calcium 8.7 mg/dL (7.8-10.44); Carbon Dioxide 20 mmol/L (22-29); Chloride 105 mmol/L (98-107); Estimated GFR-MDRD Greater than 90; Globulin 3.1 g/dL (2.4-3.5); Glucose 118 mg/dL (70-105); Potassium 4.1 mmol/L (3.5-5.1); Protein, Total 6.4 g/dL (6.0-8.3); Sodium 137 mmol/L (136-145)
[2019-06-08 10:21] LABS: Amphetamine Detected (NotDetected); Barbiturates Screen Not Detected (NotDetected); Benzodiazepine Screen Detected (NotDetected); Cocaine Metabolite Screen Not Detected (NotDetected); Medtox Control Line Valid? VALID (VALID); Medtox Reader # READER 1; Methadone Not Detected (NotDetected); Methamphetamine Detected (NotDetected); Opiate Screen Not Detected (NotDetected); Oxycodone Screen Not Detected (NotDetected); Phencyclidine (PCP) Not Detected (NotDetected); THC/Cannabinoid Screen Detected (NotDetected); Tricyclic Screen Not Detected (NotDetected)
[2019-06-08 10:27] LABS: Creatinine, Urine 62.58 mg/dL (47-110)
[2019-06-08 10:39] LABS: Syphilis Antibody Nonreactive (Nonreactive); Syphilis Antibody Index 0.05 S/CO (<1.00 Non-Reactive)
[2019-06-08 10:50] LABS: HBSAg Index 0.22 S/CO (0-0.99); HIV (1/2) Antibody/Antigen Non-Reactive (NonReactive); Hep B Surf Ag Non-Reactive S/CO (NonReactive); Hep C IgG Ab Non-Reactive (NonReactive); Hep C Index 0.08 S/CO (0-0.79)
--- NOTE | 2019-06-08 11:23 | PRG ---
DATE OF SERVICE: 06/08/2019 Please label this lab check. TIME: The time for the dictation and to transcribe is 1100 hours. LABS: In brief, the patient's labs have returned. Her white blood cell count is 14, but her CBC is otherwise normal. Her CMP is normal. Her UA is normal. Her RPR is negative, but her HIV and hepatitis B surface antigen and hepatitis C virus are still pending. She has received her 1 L of LR fluid. Her chest x-ray is negative. The OB ultrasound shows a likely gestational age of 35 weeks and 2 days, with a weight of about 5 pounds and 14 ounces with an LADONNA of 13, and the baby is cephalic. There is no mention of the placenta, but this report was based on verbal, so we will await the final pathology location as she has had a previous C- section. This can also be followed up as an outpatient. Her UTS (urine tox screen) did return positive for amphetamines, methamphetamines, benzodiazepines, and cannabinoids. This explains her high blood pressure reading, which is from these agents. DISPOSITION: I have discussed the case with [place] [facility] and physicians/resident manager contract and they will follow up with her in a week. They have seen the patient at bedside and will establish a plan of care for her. As at this time, I do not have any indication that this patient is having severe preeclampsia as her urine to creatinine ratio was 0.22. I do feel that her elevated blood pressure, and clinical state, favor drug-induced hypertension versus preeclampsia picture. The heart tracing is reactive and there is no evidence of labor at this time. There is no clinical evidence of abruption. We will continue our observation till about 12 noon or 1:00 p.m., just to make sure the heart tracing is still reassuring. Our plan will be to discharge the patient home, we will give her drug use information, and we will run this by our case management to make sure nothing else has to be done at this time. Job ID: [id number] MTDD
--- NOTE | 2019-06-08 11:55 | ULT ---
OB ULTRASOUND COMPLETE GREATER THAN 14 WEEKS: HISTORY: No LMP, cough. FINDINGS: Single viable intrauterine fetus in vertex presentation. The placenta is anterior. Amniotic fluid i ndex 13.7. heart rate 147 b.p.m. Cervical length 4 cm. Anatomy: The cerebellum, cisterna magna, and lateral ventricle regions are obscured or poorly seen. Otherwise , the visualized head, 4-chamber heart, 3-vessel cord, stomach, bladder, kidneys, spine, and 3-vessel cord are unremarkable. Biometry: BPD 8.8 cm-35 weeks 4 days Head circumference 31.9 cm-35 weeks 6 days Abdominal circumference 31.7 cm-35 weeks 4 days Femur length 6.7 cm-34 weeks 4 days IMPRESSION: 1. Single viable intrauterine fetus 35 weeks 2 days, Estimated date of confinement 07/11/2019. Estima joaquín weight 2661 gm. 2. anatomy involving the head and brain was incompletely seen. POS: [facility]
--- NOTE | 2019-06-08 11:56 | PDOC.EVN ---
Event Note - Event Note Event Note: HIV and RPR negative HBSAg negative
== END | disposition home or self-care (01) ==
LOC: L&D/OP 08:35
PROVIDERS: ATTEND Obstetrics & Gynecology
DX: O9A.213 Injury, poisoning and certain other consequences of external causes complicating pregnancy, third trimester (principal); T43.621A Poisoning by amphetamines, accidental (unintentional), initial encounter; T42.4X1A Poisoning by benzodiazepines, accidental (unintentional), initial encounter; T40.7X1A Poisoning by cannabis (derivatives), accidental (unintentional), initial encounter; O16.3 Unspecified maternal hypertension, third trimester; O99.333 Smoking (tobacco) complicating pregnancy, third trimester; F17.210 Nicotine dependence, cigarettes, uncomplicated; Z3A.35 35 weeks gestation of pregnancy
CPT/HCPCS: 36415; 71045; 76805; 80053; 80306; 81001; 82570; 84156; 85027; 86780; 86803; 86850; 86900; 86901; 87081; 87340; 87389; 87804

== ENCOUNTER 2019-06-13 21:21 | Day surgery (SDC) | payer OTHER ==
[2019-06-13] MEDS ORDERED: hydrALAZINE 20 MG/ML VIAL SLOW IVP PRN (23:35)
[2019-06-13 23:40] VITALS: BP 117/68; TEMP 97.8; BMI 25.0
[2019-06-14 00:12] LABS: Hemoglobin 10.5 g/dL (12.0-16.0); Mean Corpuscular HGB CONC 34.5 g/dL (32.0-36.0); Mean Corpuscular Hemoglobin 29.1 pg (27.0-31.0); Mean Corpuscular Volume 84.3 fL (78.0-98.0); Platelet Count 411 thou/uL (130-400); RBC Distribution Width 13.3 % (11.5-14.5); Red Blood Cell (RBC) Count 3.62 mill/uL (4.20-5.40); White Blood Cell (WBC) Count 11.3 thou/uL (4.8-10.8)
[2019-06-14 00:15] LABS: Creatinine, Urine 356.11 mg/dL (47-110)
[2019-06-14 00:34] LABS: ALT (SGPT) 9 U/L (8-55); AST (SGOT) 13 U/L (5-34); Albumin 2.9 g/dL (3.5-5.0); Alkaline Phosphatase 159 U/L (40-110); Anion Gap 12 mmol/L (10-20); BUN (Urea Nitrogen) 9 mg/dL (7.0-18.7); Bilirubin, Total 0.4 mg/dL (0.2-1.2); Calc. Creatinine Clearance 135 mL/min (70-130); Calcium 8.7 mg/dL (7.8-10.44); Carbon Dioxide 23 mmol/L (22-29); Chloride 107 mmol/L (98-107); Estimated GFR-MDRD Greater than 90; Globulin 3.3 g/dL (2.4-3.5); Glucose 77 mg/dL (70-105); Potassium 3.6 mmol/L (3.5-5.1); Protein, Total 6.2 g/dL (6.0-8.3); Sodium 138 mmol/L (136-145)
--- NOTE | 2019-06-14 02:32 | HP ---
CHIEF COMPLAINT: Elevated blood pressures. HISTORY OF PRESENT ILLNESS: This is a 33-year-old, G6, P4, at approximately 36 weeks by a 35-week ultrasound, who presented with complaints of elevated blood pressures at home. The patient reports she has been checking her blood pressure ever since she came in approximately six days ago for headache and had some mild range pressures, however, these resolved on serial pressures and labs were within normal limits at that time. She had an ultrasound on June 07 that showed her estimated date of confinement to be July 10. The patient has an unsure last menstrual period. She has been unable to seek care this secondary to working and her kids. She does endorse that she has some lower extremity swelling and intermittent headaches. These headaches are resolved usually with lying down. She denies any right upper quadrant pain or persistent visual changes. She denies any nausea or vomiting. She does have slightly decreased appetite or increase in heartburn secondary to her third trimester . She endorses good movement. Denies contractions, vaginal bleeding, or leakage of fluid. Of note, patient had an appointment for visit last week, however, had to reschedule secondary to patient being late and her first initial care visit is on the . Other than that, she has no previous care other than her triage visit. RESIDENTIAL ROOFER HELPER HISTORY: Denies history of STDs or abnormal Pap smears, regular menses. PAST MEDICAL HISTORY: History of -induced hypertension in first that was delivered at term, x1. MEDICATIONS: vitamins. SOCIAL HISTORY: Negative x3. FAMILY HISTORY: Noncontributory. ALLERGIES: NO KNOWN DRUG ALLERGIES. REVIEW OF SYSTEMS: 12-point review of systems is negative except as noted in HPI. PHYSICAL EXAMINATION: VITAL SIGNS: Blood pressure 125/68, heart rate is 88, max blood pressure reading is 141/86, temp 97.8, O2 saturations 100% on room air, respirations 12. GENERAL: No acute distress. Alert and oriented x3. CARDIAC: Regular rate and rhythm. LUNGS: Clear to auscultation bilaterally. ABDOMEN: Soft, nontender, nondistended and gravid. EXTREMITIES: No edema, cyanosis or clubbing. PELVIC: Deferred. External monitor baseline 140, moderate dkjg-wk-kwul variability, positive accelerations, no deceleration. TOCO shows irregular, rare contractions. LABORATORY DATA: Platelets 411, hemoglobin 10.5, creatinine 0.65. AST and ALT are within normal limits. Urine protein creatinine ratio is 0.1. ASSESSMENT AND PLAN: This is a 33-year-old G6, P4, 36 weeks with no care, presenting with complaints of elevated blood pressures. The patient does not meet criteria for severe features. It does appear that she is becoming preeclamptic. She is given strict instructions to monitor her blood pressure at home daily and she will follow up in the office in 5 days and at that time, further disposition can be made. The patient does have a previous and mode of delivery needs to be discussed. The patient was given warnings for severe signs to come back to the hospital for further evaluation. The patient was also given work to until she can get into see her doctor, so as not to put undue stress causing increases in her blood pressure. She voiced understanding of these things and status is reassuring at this time. Of note, the patient did have on her last visit when she came in, amphetamines, benzodiazepines, THC, and her urine drug screen. She had normal RPR, hep B surface antigen, and HIV and hep C antibody. Her blood type is A positive. Antibody screen negative. She had a group B culture that showed negative group B strep. Her urine drug screen will be repeated during this visit as well. Job ID: [id number]
[2019-06-14 03:31] LABS: Amphetamine Not Detected (NotDetected); Barbiturates Screen Not Detected (NotDetected); Benzodiazepine Screen Not Detected (NotDetected); Cocaine Metabolite Screen Not Detected (NotDetected); Medtox Control Line Valid? VALID (VALID); Medtox Reader # READER 4; Methadone Not Detected (NotDetected); Methamphetamine Detected (NotDetected); Opiate Screen Not Detected (NotDetected); Oxycodone Screen Not Detected (NotDetected); Phencyclidine (PCP) Not Detected (NotDetected); THC/Cannabinoid Screen Detected (NotDetected); Tricyclic Screen Not Detected (NotDetected)
== END 2019-06-14 01:20 | disposition home or self-care (01) ==
LOC: L&D/OP 21:21
PROVIDERS: ATTEND Family Medicine
DX: O99.89 Other specified diseases and conditions complicating pregnancy, childbirth and the puerperium (principal); R03.0 Elevated blood-pressure reading, without diagnosis of hypertension; Z3A.36 36 weeks gestation of pregnancy
CPT/HCPCS: 36415; 80053; 80306; 82570; 84156; 85027; 99283

== ENCOUNTER 2019-06-23 02:42 | Inpatient (IN) | payer OTHER ==
[2019-06-23] MEDS ORDERED: Acetaminophen 500 MG TAB PO PRN (02:53)
[2019-06-23] MEDS ORDERED: NS / Oxytocin 40 units/1000ml 1,000 ML IV PRN (02:53)
[2019-06-23] MEDS ORDERED: Ibuprofen 800 MG TAB PO PRN (02:53)
[2019-06-23] MEDS ORDERED: Ondansetron PF 4 MG/2 ML Vial IVP PRN ×2 (02:53→04:46)
[2019-06-23] MEDS ORDERED: Lidocaine 1% (PF) 30 ML VIAL SC PRN (02:53)
[2019-06-23] MEDS ORDERED: Butorphanol Tartrate 1 MG/ML VIAL SLOW IVP PRN (02:53)
[2019-06-23] MEDS ORDERED: Promethazine HCl 25 MG/ML VIAL IM PRN ×2 (02:53→04:46)
[2019-06-23] MEDS ORDERED: hydrALAZINE 20 MG/ML VIAL SLOW IVP PRN ×2 (02:53→10:21)
[2019-06-23] MEDS: Lactated Ringer's 1,000 ML IV SCH ×2 (02:58→05:00)
[2019-06-23 03:16] LABS: Hemoglobin 11.5 g/dL (12.0-16.0); Mean Corpuscular HGB CONC 33.1 g/dL (32.0-36.0); Mean Corpuscular Volume 84.8 fL (78.0-98.0); Mean Platelet Volume 7.7 fL (7.4-10.4); Platelet Count 494 thou/uL (130-400); RBC Distribution Width 13.5 % (11.5-14.5); White Blood Cell (WBC) Count 8.8 thou/uL (4.8-10.8)
[2019-06-23 03:19] VITALS: BMI 28.4
[2019-06-23 03:48] LABS: HBSAg Index 0.16 S/CO (0-0.99); HIV (1/2) Antibody/Antigen Non-Reactive (NonReactive); HIV 1/2 INDEX 0.08 S/CO (<1.00); Hep B Surf Ag Non-Reactive S/CO (NonReactive)
[2019-06-23] MEDS ORDERED: Calcium Gluc 4.6 MEQ/10 ML (100 MG/ML) SLOW IVP PRN (04:00)
[2019-06-23] MEDS ORDERED: Magnesium Sulfate 20 GM/WATER 500 ML BAG IVPB SCH (04:00)
[2019-06-23] MEDS ORDERED: Fentanyl 4 mcg/Bup 0.1% Cadd 100 ML ONE (04:00)
[2019-06-23 04:12] LABS: ALT (SGPT) 7 U/L (8-55); AST (SGOT) 12 U/L (5-34); Albumin 3.3 g/dL (3.5-5.0); Alkaline Phosphatase 164 U/L (40-110); Anion Gap 15 mmol/L (10-20); BUN (Urea Nitrogen) 14 mg/dL (7.0-18.7); Calc. Creatinine Clearance 147 mL/min (70-130); Calcium 8.8 mg/dL (7.8-10.44); Carbon Dioxide 18 mmol/L (22-29); Chloride 109 mmol/L (98-107); Estimated GFR-MDRD Greater than 90; Globulin 2.8 g/dL (2.4-3.5); Glucose 76 mg/dL (70-105); Potassium 4.4 mmol/L (3.5-5.1); Protein, Total 6.1 g/dL (6.0-8.3); Sodium 138 mmol/L (136-145)
--- NOTE | 2019-06-23 04:23 | PDOC.LDHP ---
Addendum entered and electronically signed by Seth Valdez DO 06/23/19 05: 21: I, Seth Valdez DO have seen the pt below with Dr Ken and agree with the below findings and assessment and plan. Pt counseled on risks and benefits of TOLAC and delivery extensively. Risks discussed included uterine rupture (with possibility of pp hysterectomy), PPH, distress, exsanguination and demise. Higher risk category for late to care, short interval and anterior placenta, also discussed. risks discussed included but not limited to pain, infection, bleeding and PPH which could result in hysterectomy. Pt reports she wants to TOLAC because delivery "hurt." Was counseled on pain control options post op and has still decided on TOLAC over rLTCS. Stat bedside US showed anterior placenta several centimeters (>4cm) from cervical os. No mention of accreta. Pt does have history of preeclampsia with severe features and had 2 BPs >160, as such pre e labs pending and magnesium ordered. Hydralazine given X1 for elevated BP. Pt denies sob, cp, NVDC, epigastric/ruq pain. Reflexes 3+ w/o clonus, no headache or scotoma. Will admnit to l&d and consult anesthesia for epidural. Monitor BPs and for s/s of bleeding. Original Note: Labor and Delivery H&P Chief complaint: contractions HPI: Patient is a 33F @ 37.3wga by 3T US that presents with ctx. Patient reports that she has been having ctx since 3pm yesterday. Denies loss of fluid or vaginal bleeding. Endorses movement. Patient has had limited care, first dating US on 06/07 after presentation to L&D. Her UDS was + for methamphetamines and cannabis on 06/13. She does not currently have custody of her other children due to her drug use. She saw Dr. Hameed at [facility] for 1 prental appointment before presenting tonight. PCP: [place] Grav: 6 Para: 4 OB History Details: 03/08/2006-T (PIH vs pre-e) 10/03/2009-T 10/02/2016-T 01/29/2018-T for breech Current complications: preeclampsia with severe features Abnormal US findings: No Current medications: pre- vitamins, iron Previous surgical history: low tranverse CS Allergies/Adverse Reactions: Allergies Allergy/AdvReac Type Severity Reaction Status Date / Time No Known Allergies Allergy Verified 06/23/19 03:12 Social history: tobacco use (quit during ), drug use - Physical Exam Abnormal vital signs: She has had 2 BP >160 systolic General: NAD Heart: RRR Lungs: nonlabored breathing Abdomen: NTTP Extremeties: trace edema FHT: category 1, variability present [place] contractions every: 2-3 - Vaginal Exam cm dilated: 5 Effacement: 75% Station: -2 - OB Labs Blood type: A RH: positive Antibody Screen: negative HIV: negative RPR: negative HEPSAg: negative GBS: negative Urine drug screen: positive - Assessment L&D Assessment: term patient in labor - Plan Plan: admit to L&D, observation in L&D, magnesium for seizure prophylaxis -: Patient is a 33F @ 37.3wga by 3T US that presents in labor #sIUP, T by 3T US in labor -/-2 on arrival, ctx q2-3 -FHT: cat 1 strip, baseline 140 -desires epidural, consult placed -had multiple conversations about the risks and benefits of both TOLAC vs C- section with the patient. Discussed that patient's prior was 17months ago and this puts her at an increased risk for hemorrhage and further complications for both the patient and her baby. US tech demonstrated placenta not close to cervical os, no concern for previa. Will proceed with plans for TOLAC at this time. -q1-2h cervical checks, continued monitoring of FHT #Pre-E with Severe Features -at least 2 PB with systolic >160 -patient denies headaches and changes with vision -CBC and CMP, urine protein/creatinine pending -will start on Mag with q4h mag checks #Hx of drug abuse -UDS + meth and cannabis on 06/13 -mother does not have custody of any of her children -CM consult #Late to care -dating based off of 3T US -will get traditional no- care OB labwork -with have patient f/u with [facility] to fulfill her wish for pp contraception Diet: NPO with ice chips Dispo: admit to L&D for imminent labor. Mag for pre-e with severe features. Risks and benefits have been thoroughly discussed with the patient and she wishes to proceed with TOLAC. Addendum - Attending - Attending Attestation Date/Time: 06/23/19 1350 I personally evaluated the patient and discussed the management with Dr. Ken and José Miguel I agree with the History, Examination, Assessment and Plan documented above with any addition or exceptions noted below. 33 yo female at 37.3 wks by 35 wk sono presents in labor. Reports contractions starting earlier in the day. Denies LOF and vaginal bleeding. +FM. Denies URI symptoms. FHT cat 1. Cephalic. EFW 7 lbs. Contractions q 3 mins. Request epidural for pain control. Again addressed risk for TOLAC. Patient accepts and would like to proceed. Discussed with laborist. UDS pending. Noted to have severe range BP. Asymptomatic. Labs ordered. Mag started. GBS negative. NICU and nursery notified of possible infant complications. CPS to be consulted. Repeat exam in 2 hours. Raissa
[2019-06-23] MEDS: Magnesium Sulfate 20 gm/500 ml 20 GM/500 ML BAG IVPB SCH ×3 (04:44→23:14)
[2019-06-23] MEDS ORDERED: Naloxone HCl 0.4 mg/ml Vial IVP PRN ×2 (04:46)
[2019-06-23] MEDS ORDERED: diphenhydrAMINE 50 MG/ML VIAL IVP PRN (04:46)
[2019-06-23] MEDS ORDERED: Lactated Ringer's 500 ML IV PRN (04:46)
[2019-06-23] MEDS ORDERED: Acetaminophen 325 MG TAB PO PRN (04:46)
[2019-06-23] MEDS ORDERED: EPHEDRINE 25 MG/5 ML SYRINGE SLOW IVP PRN (04:46)
[2019-06-23] MEDS ORDERED: Communication Order-Pharmacy FS SCH (05:00)
[2019-06-23] MEDS ORDERED: Fentanyl 4 mcg/Bupivacaine 0.1% Cassette 100 ML EPIDURAL SCH (05:00)
[2019-06-23 05:29] LABS: Syphilis Antibody Nonreactive (Nonreactive); Syphilis Antibody Index 0.05 S/CO (<1.00 Non-Reactive)
[2019-06-23 05:32] LABS: Amphetamine Not Detected (NotDetected); Bacteria/HPF None Seen HPF (None Seen); Barbiturates Screen Not Detected (NotDetected); Benzodiazepine Screen Not Detected (NotDetected); Bilirubin Negative (Negative); Blood, Urine Negative (Negative); Clarity Clear (Clear); Cocaine Metabolite Screen Not Detected (NotDetected); Glucose, Urine (Dipstick) Normal (Negative); Leukocyte 25 Leu/uL (Negative); Medtox Control Line Valid? VALID (VALID); Medtox Reader # READER 1; Methadone Not Detected (NotDetected); Methamphetamine Not Detected (NotDetected); Nitrite Negative (Negative); Opiate Screen Not Detected (NotDetected); Oxycodone Screen Not Detected (NotDetected); Phencyclidine (PCP) Not Detected (NotDetected); Protein, Urine (Dipstick) 20 mg/dL (Neg-Trace); RBC/HPF 0-3 HPF (0-3); THC/Cannabinoid Screen Detected (NotDetected); Tricyclic Screen Not Detected (NotDetected)
[2019-06-23 05:34] LABS: Urine Culture Reflex No No
[2019-06-23 05:47] LABS: Creatinine, Urine 159.16 mg/dL (47-110)
[2019-06-23] MEDS ORDERED: Misoprostol 200 MCG TAB PR SCH (08:00)
--- NOTE | 2019-06-23 08:24 | ULT ---
PRELIMINARY REPORT/[facility]/EMERGENCY AFTER HOURS PROCEDURE: EXAM: US Obstetrical, Limited. CLINICAL HISTORY: LIMITED OB SCAN FOR PLACENTA LOCATION. CONTRACTIONS AT 37WKS. SEE NOTES ON LAST BRANDON GE. THANKS TECHNIQUE: Real-time ultrasound of the maternal uterus (limited) with image documentation. COMPARISON: None provided. FINDINGS: A single live intrauterine gestation of approximately 37 weeks is noted demonstrating a Americo kaylee presentation and a heartbeat of 141 bpm. The placenta is located in the fundal region with no evidence for previa. IMPRESSION: Single live intrauterine gestation. Fundal placenta ELECTRONICALLY SIGNED BY: Major Sabillon MD Jun 23, 2019 4:02:10 AM CDT FINAL REPORT: LIMITED OB ULTRASOUND: HISTORY: Evaluate placental location. FINDINGS: Single intrauterine gestation. heart tones: 1 41 bpm. presentation: Vertex. There is movement. Placental location is posterior, fundal. No evidence of previa. IMPRESSION: 1. This report is in agreement with the initial report by [facility]. 2. Single intrauterine gestation. Fundal placental location. Transcribed Date/Time: 06/23/2019 8:32 AM
[2019-06-23] MEDS ORDERED: Misoprostol 200 MCG TAB ONE (08:38)
--- NOTE | 2019-06-23 09:01 | PDOC.OPDEL ---
OB Operative/Delivery Note Delivery Dr/Surgeon: Yoseph / Silvano Anesthesia: epidural - Additional Findings/Plan Compilations/Other Findings: Vaginal Delivery note Delivering Physician: Dr. Hameed with Dr. Schaefer Attending: Reinaldo Procedure: Spontaneous Vaginal Delivery Anesthesia: Epidural QBL: to be determined, minimal. Pre-op Diagnosis: 1. Term intrauterine in labor 2. Hx of poor care 3. methamphetamine use during 4. marijuana use during 5. hx of preeclampsia with severe features 6. gestational hypertension with severe blood pressures Post-op Diagnosis: 1. Term intrauterine , delivered 2. same as above Indications: A 33y/o female presents in active labor. Delivery Note: This is 33y/o female @ approximately 37.3wks EGA who delivered a viable M at 0833. Following an uneventful antepartum course, a vigorous M was delivered over an intact perineum in the face position. Anterior Shoulder and then remainder of the body delivered. No nuchal cord. The head was held down and mouth and nares were bulb suctioned. Cord clamped and cut and cord blood collected. Placenta delivered intact with a 3 vessel cord noted. Fundal massage was performed and the fundus was firm. The cervix and vagina were inspected and found to be free of lacerations. Infant went to nursery in good condition for routine care and case management consults. Apgars were 8/9 at 1 & 5 minutes, respectively. Patient tolerated delivery well and went to after routine recovery/care. Mom is on magnesium sulfate for prophylaxis, she had 2 severe range pressures during her antepartum course. Attending Note: I was present throughout the patient's peripartum course and delivery. Progressed quickly once admitted. Uncomplicated TOLAC which ended with successful at 0833. APGARs 8/9. No lacerations. Patient dx with gHTN with severe range pressures. Started on mag. Will continue pp course in LICU on L&D. Remains asymptomatic. Raissa
[2019-06-23] MEDS ORDERED: Bupivacaine/Epinephrine 0.25% 30 ML VIAL ONE (09:16)
[2019-06-23] MEDS ORDERED: Lanolin Ointment 7 GM TUBE TOP PRN (10:09)
[2019-06-23] MEDS ORDERED: Benzocaine-Menthol 82.5 ML CAN TOP PRN (10:09)
[2019-06-23] MEDS ORDERED: Milk Of Magnesia 30 ML UDCUP PO PRN (10:09)
[2019-06-23] MEDS ORDERED: diphenhydrAMINE 25 MG CAP PO PRN (10:09)
[2019-06-23] MEDS ORDERED: Bisacodyl 10 MG SUPP PR PRN (10:09)
[2019-06-23] MEDS ORDERED: Acetaminophen 325 MG TAB PO SCH (10:15)
[2019-06-23] MEDS ORDERED: NS / Oxytocin 40 units/1000ml 1,000 ML IV SCH (10:15)
[2019-06-23] MEDS ORDERED: Labetalol HCl 100 MG/20 ML VIAL SLOW IVP PRN (10:21)
[2019-06-23] MEDS: Ibuprofen 800 MG TAB PO SCH ×2 (12:41→19:29)
--- NOTE | 2019-06-23 12:41 | PDOC.BPN ---
<Linh Gil - Last Filed: 06/23/19 12:37> - Brief Progress Note 33 y/p -> 5015, delivered via @ 0833 on 06/22 @ 37.7 wks gestation dated by 35 wk sono. S: c/o FITZGERALD, and upper back pain. O: Vitals: BP 141/89, HR 74, BP's have been 140/high 80's. Non >160 sys last couple of hours. Gen: resting, nad. heart: RRR lungs: CTAB, good air movement. ext: DTR's 2+ at knees bilaterally. A&P: Elevated BP, continue mag drip for 24 hours. Stable at this time. use PRN medications if sys >160. Mag started at 04:00 on 06/22. continue until 04:00 on . Headache most likely from magnesium, but will monitor for improvement with motrin. It not improved consider pre-e cause of FITZGERALD. Pro/Cr urine ration 0.11 <Janene Najera - Last Filed: 06/25/19 13:44> - Brief Progress Note Agree with above documentation. Patient dx with gHTN with severe range BP. Continue mag ppx x 24 hours. Now with headache. Labs WNL. BP improved to mild range. Monitor UOP closely. Treat FITZGERALD. Clears only. Repeat exam in 4 hours. Raissa
--- NOTE | 2019-06-23 16:42 | PDOC.BPN ---
<Linh Gil - Last Filed: 06/23/19 16:41> - Brief Progress Note 33 y/p -> 5015, delivered via @ 0833 on 06/22 @ 37.7 wks gestation dated by 35 wk sono. S: c/o FITZGERALD, and upper back pain. O: Vitals: BP 141/89, HR 74, BP's have been 140/high 80's - 110'/high 60's. Non >160 sys last couple of hours. Gen: resting, nad. heart: RRR lungs: CTAB, good air movement. ext: DTR's 2+ at knees bilaterally. A&P: Elevated BP, continue mag drip for 24 hours. Stable at this time. use PRN medications if sys >160. Mag started at 04:00 on 06/22. continue until 08:33 on . Headache most likely from magnesium, improved with motrin. Pro/Cr urine ration 0.11 <Janene Najera - Last Filed: 06/25/19 13:47> - Brief Progress Note Agree with documentation above. Patient now with preeclampsia with severe features due to severe range BP and FITZGERALD. Continue mag x 24 hours as least. May d/ c if BP stable and patient's symptoms resolved. FITZGERALD has improved mostly with medication but still present but dull in nature. No other symptoms. No s/sx of mag tox. Appropriate UOP and lochia. ABrayMD
[2019-06-23] MEDS: Acetaminophen 500 MG TAB PO PRN (17:31)
[2019-06-23] MEDS: Ferrous Sulfate 325 MG TAB PO SCH (18:27)
[2019-06-23] MEDS: Docusate Calcium (SURFAK) 240 MG CAP PO SCH (19:29)
[2019-06-23] MEDS ORDERED: HYDROcodone/Acetaminophen 5/325 mg Tablet PO SCH (19:30)
[2019-06-23] MEDS ORDERED: FLU VACC QS2019-20(6MOS UP)/PF 60 MCG/0.5 ML SYRINGE IM ONE (21:00)
--- NOTE | 2019-06-23 21:21 | PDOC.BPN ---
<Anjelica Hameed - Last Filed: 06/23/19 21:21> - Brief Progress Note 33 y/p -> 5015, delivered via @ 0833 on 06/22 @ 37.7 wks gestation dated by 35 wk sono. S: c/o FITZGERALD, vaginal and lower back pain. O: Vitals: Highest BP 159/91. Majority <150 systolic and ~90 diastolic. HR 60- 70s. Urinary output 200-300 over last 4 hours. Gen: No acute distress. heart: RRR lungs: CTAB, good air movement. ext: DTR's 2+ at knees bilaterally. A&P: Elevated BP, continue mag drip for 24 hours. Stable at this time. No severe range pressures noted. Highest pressure 159/91. Use PRN medications if sys >160. Mag started at 04:00 on 06/22. continue until 08 :33 on 06/23. Headache most likely from magnesium, improved earlier with Tylenol/Motrin. Gave 1x dose of [place] for pain. Pro/Cr urine ration 0.11 <Janene Najera - Last Filed: 06/25/19 13:52> - Brief Progress Note Agree with documentation. Continue mag ppx. FITZGERALD returned. Would treat with FITZGERALD cocktail -- toradol, reglan, benadryl. Otherwise no preE symptoms. BP stable. No severe range. Raissa
[2019-06-24] MEDS: Acetaminophen 500 MG TAB PO PRN ×3 (00:20→18:14)
--- NOTE | 2019-06-24 01:19 | PDOC.BPN ---
<Anjelica Hameed - Last Filed: 06/24/19 01:18> - Brief Progress Note 33 y/p -> 5015, delivered via @ 0833 on 06/22 @ 37.7 wks gestation dated by 35 wk sono. S: c/o FITZGERALD, vaginal and lower back pain - improving. O: Vitals: Highest BP 137/80. Urinary output >200ml/hr over last 4 hours. Gen: No acute distress. heart: RRR lungs: CTAB, good air movement. ext: DTR's 2+ at knees bilaterally. A&P: Elevated BP, continue mag drip for 24 hours. Stable at this time. No severe range pressures noted. Highest pressure overnight so far 159/91. Use PRN medications if sys >160. Mag started at 04:00 on 06/22. continue until 08 :33 on 06/23. Headache most likely from magnesium, improved earlier with Tylenol/Motrin. Gave 1x dose of [place] for pain, headache improved. Pro/Cr urine ration 0.11 <Janene Najera - Last Filed: 06/25/19 13:55> - Brief Progress Note Agree with documentation. Patient with preE with severe features. Continue mag ppx. FITZGERALD improved again. Good UOP. BP stable. No s/sx of mag tox. Raissa
[2019-06-24] MEDS: Lactated Ringer's 1,000 ML IV SCH ×4 (02:34→21:02)
--- NOTE | 2019-06-24 04:52 | PDOC.BPN ---
<Anjelica Hameed - Last Filed: 06/24/19 04:50> - Brief Progress Note 33 y/p -> 5015, delivered via @ 0833 on 06/22 @ 37.7 wks gestation dated by 35 wk sono. S: No complaints. Resting comfortably. O: Vitals: No severe range pressures. Urinary output >200ml/hr over last 4 hours. Gen: No acute distress. heart: RRR lungs: CTAB, good air movement. ext: DTR's 2+ at knees bilaterally. A&P: Elevated BP, continue mag drip for 24 hours. Stable at this time. No severe range pressures noted. Use PRN medications if sys >160. Mag started at 04:00 on 06/22. continue until 08 :33 on 06/23. Headache most likely from magnesium, improved earlier with Tylenol/Motrin. Gave 1x dose of [place] for pain, headache improved. Pro/Cr urine ration 0.11 <Janene Najera - Last Filed: 06/25/19 13:57> - Brief Progress Note Agree with documentation. Patient remains stable. No new symptoms. BP stable. Ok to d/c mag at 0830. Raissa
--- NOTE | 2019-06-24 05:08 | PDOC.PP ---
Post Progress Note Post Day #: 1 Subjective: Doing well, complains of vaginal and lower abdomen soreness. PO intake tolerated: yes (clear liquids / crackers.) Flatus: yes Ambulation: no (On Mag) BP 114/76, HR 56 Weight Weight 77.564 kg - Physical Examination General: NAD Cardiovascular: no m/r/g, RRR Respiratory: clear to auscultation bilaterally, non-labored breathing Abdominal: + bowel sounds, lochia, no distention, appropriately TTP Neurological: no gross focal deficits Psychiatric: A&Ox3, normal affect Result Diagrams: 06/23/19 03:04 06/23/19 03:04 Additional Labs: Post Labs Blood Type A POSITIVE 06/23/19 03:04 Hep Bs Antigen Non-Reactive S/CO (NonReactive) 06/23/19 03:04 (1) (vaginal after ) Code(s): O34.219 - MATERNAL CARE FOR UNSP TYPE SCAR FROM PREVIOUS DEL Status: Acute (2) Drug use Code(s): F19.90 - OTHER PSYCHOACTIVE SUBSTANCE USE, UNSPECIFIED, UNCOMPLICATED Status: Acute (3) Poor patient attendance of care Code(s): O09.30 - SUPRVSN OF PREG W INSUFFICIENT ANTENAT CARE, UNSP TRIMESTER Status: Acute - Assessment/Plan 33 y/p -> 5015, delivered via @ 0833 on 06/22 @ 37.7 wks gestation dated by 35 wk sono. PPD #1 s/p () - Doing well. Once off mag, encouraged ambulation. - Patient plans to breastfeed. - She will follow up with me for post- care. She desires consult for tubal ligation. - Tylenol prn and Motrin q8hr for pain. She required a 1x dose of norco overnight. Preeclampsia with severe features (severe range BP, FITZGERALD) - h/o pre-eclampsia in prior . On Magnesium sulfate gtt. Will plan to d /c mag 24 hours after delivery. - Overnight no severe range pressures, highest noted was 159 systolic. Good urine output. No edema. Drug use during - CPS will be contacted. Baby mec and UDS pending. - Patient plans to move in with grandmother after discharge in hopes of distancing herself and avoiding drug use. Dispo: Stable. Addendum - Attending - Attending Attestation Date/Time: 06/24/19 7528 I personally evaluated the patient and discussed the management with Dr. Hameed I agree with the History, Examination, Assessment and Plan documented above with any addition or exceptions noted below. PPD#1 Patient doing well. Lochia appropriate. Pain controlled. However, complains of muscle spasm of back and FITZGERALD. Denies vision changes, N/V, sob, cp. VS reviewed. Appears to be in pain. RRR. No murmurs. CTAB. No W/C/R. Fundus firm and nontender. FROM. No c/c/e. 1. s/p : Routine care. 2. Substance use in : CPS and case management. UDS on negative. 3. Preeclampsia with severe features due to severe range BP and FITZGERALD. sp mag ppx. Now with FITZGERALD. Will treat with FITZGERALD cocktail. Follow up later today. BP normotensive. 4. Muscle spasm: Will treat with heating pad, ambulation, and medication. Likely d/c in AM. Patient request circ for . Raissa
[2019-06-24] MEDS: Ibuprofen 800 MG TAB PO SCH ×3 (05:28→20:55)
[2019-06-24] MEDS: Ferrous Sulfate 325 MG TAB PO SCH ×2 (11:29→17:57)
[2019-06-24] MEDS: Docusate Calcium (SURFAK) 240 MG CAP PO SCH ×2 (11:30→21:02)
[2019-06-24] MEDS: Prenatal Vitamin 1 TAB PO SCH (11:30)
[2019-06-24] MEDS ORDERED: Adacel (T-DAP) 0.5 ML SYRINGE IM ONE (11:33)
[2019-06-24] MEDS ORDERED: Metoclopramide HCl 10 MG TAB PO SCH ×2 (12:15→20:45)
[2019-06-24] MEDS ORDERED: Methocarbamol 500 MG TAB PO SCH ×2 (12:15→20:45)
[2019-06-24] MEDS ORDERED: Acetaminophen 500 MG TAB PO SCH (12:15)
[2019-06-25] MEDS: Lactated Ringer's 1,000 ML IV SCH ×2 (04:52→12:58)
[2019-06-25] MEDS: Ibuprofen 800 MG TAB PO SCH ×2 (04:54→11:25)
--- NOTE | 2019-06-25 06:42 | PDOC.PP ---
Post Progress Note Post Day #: 2 Subjective: Doing well. Complains of mild intermittent headache. PO intake tolerated: yes Flatus: yes Ambulation: yes Vital Signs (12 hours) Temp Pulse Resp BP Pulse Ox 06/25/19 05:45 53 L 128/60 06/25/19 01:50 79 114/66 06/24/19 20:15 98.6 F 66 16 153/84 H 96 Weight Weight 77.564 kg - Physical Examination General: NAD Cardiovascular: no m/r/g, RRR Respiratory: clear to auscultation bilaterally, non-labored breathing Abdominal: + bowel sounds, lochia, no distention, appropriately TTP Neurological: no gross focal deficits Psychiatric: A&Ox3, normal affect Result Diagrams: 06/23/19 03:04 06/23/19 03:04 Additional Labs: Post Labs Blood Type A POSITIVE 06/23/19 03:04 Hep Bs Antigen Non-Reactive S/CO (NonReactive) 06/23/19 03:04 (1) (vaginal after ) Code(s): O34.219 - MATERNAL CARE FOR UNSP TYPE SCAR FROM PREVIOUS DEL Status: Acute (2) Drug use Code(s): F19.90 - OTHER PSYCHOACTIVE SUBSTANCE USE, UNSPECIFIED, UNCOMPLICATED Status: Acute (3) Poor patient attendance of care Code(s): O09.30 - SUPRVSN OF PREG W INSUFFICIENT ANTENAT CARE, UNSP TRIMESTER Status: Acute - Assessment/Plan 33 y/p -> 5015, delivered via @ 0833 on 06/22 @ 37.7 wks gestation dated by 35 wk sono. PPD #1 s/p () - Doing well. - Patient plans to breastfeed and bottle feed as needed. Discussed allowing baby to breast feed and "top-off" with formula. - She will follow up with me for post- care. She desires consult for tubal ligation. - Tylenol prn and Motrin q8hr for pain. Elevated BP - h/o pre-eclampsia in prior . Received 24 hours of mag sulfate after delivery. No severe range pressures. - Good urine output. No edema. - Recommend monitoring BP at home on d/c and to notify us if BP is elevated over 140/90, especially if over 160/110. Drug use during - CPS contacted. They do not want baby released to mom yet, they are coming by this morning to discuss. Baby UDS negative. [facility] drug screen pending. - Patient plans to move in with grandmother after discharge in hopes of distancing herself and avoiding drug use. Addendum - Attending - Attending Attestation Date/Time: 06/25/1964 I personally evaluated the patient and discussed the management with Dr. Hameed. I agree with the History, Examination, Assessment and Plan documented above with any addition or exceptions noted below. CPS pending eval for baby. Discussed severe features with patient at length. One elevated BP overnight. Will monitor until CPS makes decision on baby. Likely D/C today.
[2019-06-25 07:34] VITALS: TEMP 98.9
[2019-06-25] MEDS: Ferrous Sulfate 325 MG TAB PO SCH ×2 (08:21→15:09)
[2019-06-25] MEDS: Docusate Calcium (SURFAK) 240 MG CAP PO SCH (08:25)
[2019-06-25] MEDS: Prenatal Vitamin 1 TAB PO SCH (08:25)
[2019-06-25] MEDS: Acetaminophen 500 MG TAB PO PRN ×2 (08:33→15:02)
[2019-06-25 17:14] VITALS: BP 144/87
[2019-06-25] MEDS ORDERED: Ketorolac Tromethamine 30 MG/ML VIAL IVP SCH (18:00)
[2019-06-25] MEDS ORDERED: Ketorolac Tromethamine 10 MG TAB PO SCH (18:15)
[2019-06-26] MEDS ORDERED: Ibuprofen 800 MG TAB PO SCH (02:00)
== END 2019-06-25 18:46 | disposition home or self-care (01) | DRG 806 ==
LOC: L&D/OP 02:42 → L&D 03:01 → 3SW 06-24 11:43
PROVIDERS: ADMIT Student in an Organized Health Care Education/Training Program; ATTEND Student in an Organized Health Care Education/Training Program
PROC: 10E0XZZ Delivery of Products of Conception, External Approach (ICD-10-PCS; principal; 2019-06-23)
PROC: 6A550ZT Pheresis of Cord Blood Stem Cells, Single (ICD-10-PCS; 2019-06-23)
DX: O34.219 Maternal care for unspecified type scar from previous cesarean delivery (principal); O99.324 Drug use complicating childbirth; Z37.0 Single live birth; O14.14 Severe pre-eclampsia complicating childbirth; O13.4 Gestational [pregnancy-induced] hypertension without significant proteinuria, complicating childbirth; F12.90 Cannabis use, unspecified, uncomplicated; F15.90 Other stimulant use, unspecified, uncomplicated; Z3A.37 37 weeks gestation of pregnancy
CPT/HCPCS: 36415; 51702; 76815; 80053; 80306; 81001; 82570; 84156; 85027; 86762; 86780; 86850; 86900; 86901; 87340; 87389; 90471; 90686; 90715; 99285; G0008; J3475